=== PATIENT | female | born 1960 | race Caucasian/White ===

== ENCOUNTER 2017-05-14 07:31 | Emergency (ER) | payer OTHER ==
[~2017-05-14] VITALS: Ht 157.5 cm; Wt 118.0 kg
[~2017-05-14 07:31] MED LIST: ALBU8.5H8 IH; ASPI81TA39 PO; ATOR40TA28 PO; GLIP10 PO; HYD25 PO; HYDR25TA PO; INSLAN SQ; INSU100C3 SQ; LISI-662 PO; METF500T4 PO; MONT10TA21 PO; OMEP20 PO; SERT50TA12 PO
[2017-05-14 07:58] LABS: GLUCOSE,POINT OF CARE 171 MG/DL (70-110)
[2017-05-14 09:02] LABS: INFLUENZA TYPE B POSITIVE FOR TYPE B (NEGATIVE)
[2017-05-14 10:00] VITALS: BP 152/88
== END 2017-05-14 10:18 | disposition home or self-care (01) ==
LOC: EMS 07:32
DX: J10.1 Influenza due to other identified influenza virus with other respiratory manifestations (principal); I11.0 Hypertensive heart disease with heart failure; I50.9 Heart failure, unspecified; J45.909 Unspecified asthma, uncomplicated; E78.00 Pure hypercholesterolemia, unspecified; K21.9 Gastro-esophageal reflux disease without esophagitis; E11.9 Type 2 diabetes mellitus without complications; Z79.4 Long term (current) use of insulin; Z79.899 Other long term (current) drug therapy
CPT/HCPCS: 82962; 87804; 99284